=== PATIENT | female | born 1990 | race Two or more races ===

== ENCOUNTER 2022-12-03 00:46 | Emergency (ER) | payer MEDICAID ==
[~2022-12-03] VITALS: Ht 160 cm; Wt 70.0 kg
[2022-12-03] MEDS ORDERED: MAALOX PLUS or MAALOX 30 ML PO ONE (01:00)
[2022-12-03] MEDS ORDERED: LIDOCAINE VISCOUS 2% 15ML UD PO ONE (01:00)
[2022-12-03] MEDS ORDERED: DONNATAL 5ml ORAL Elix (BELLADONNA ALK-PHENOBARB) PO ONE (01:00)
[2022-12-03 02:09] LABS: Basophils # (auto) 0 10 ^3/uL (0-0.2); Basophils % (auto) 0.7 % (0.0-2.0); Eosinophils # (auto) 0.2 10 ^3/uL (0-0.8); Eosinophils % (auto) 2.3 % (0.0-7.0); Hematocrit 40.5 % (36.0-46.0); Lymphocytes # (auto) 2.5 10 ^3/uL (0.4-5.4); Lymphocytes % (auto) 35.9 % (10.0-50.0); Mean Corpuscular Hemoglobin 30.9 pg (28.0-32.0); Mean Corpuscular Hgb Conc. 34.5 g/dL (32.0-36.0); Mean Corpuscular Volume 89.4 fL (80.0-100.0); Monocytes # (auto) 0.6 10 ^3/uL (0-1.3); Monocytes % (auto) 8.1 % (0.0-12.0); Neutrophils # (auto) 3.7 10 ^3/uL (1.6-8.6); Red Blood Cells 4.53 10^6/uL (4.0-5.20); Red Cell Distribution Width 12.7 % (11.8-14.3); White Blood Cell 6.9 10^3/uL (4.4-10.8)
[2022-12-03 02:25] LABS: Alanine Aminotransferase 121 U/L (7-40); Albumin 4.5 g/dL (3.2-4.8); Alkaline Phosphatase 65 U/L (46-116); Anion Gap 6.3 (5-15); Aspartate Aminotransferase 61 U/L (13-40); Blood Urea Nitrogen 14 mg/dL (9-23); Calcium 9.3 mg/dL (8.7-10.4); Carbon Dioxide 21.7 mmol/L (20-30); Chloride 108 mmol/L (98-107); Glucose 166 mg/dL (74-106); Lipase 45 U/L (12-53); Potassium 4.2 mmol/L (3.5-5.1); Sodium 136 mmol/L (136-145)
[2022-12-03 02:26] LABS: Bilirubin, Total 0.5 mg/dL (0.2-1.0); Total Protein 7.1 g/dL (5.7-8.2)
[2022-12-03 06:03] LABS: Urine Bacteria NONE SEEN /hpf (None Seen); Urine Blood Negative /uL (Negative); Urine Clarity Clear (Clear); Urine Color Colorless (Yellow); Urine Protein, UAD Negative (Negative); Urine Urobilinogen Normal (Negative); Urine WBC 1 /hpf (0 - 5); Urine pH 6.5 (5.0-8.0)
[2022-12-03 06:35] VITALS: BP 118/72; PULSE 77; RESP 16; TEMP 98.2; O2SAT 99
== END 2022-12-03 06:50 | disposition home or self-care (01) ==
LOC: ER 00:46
DX: K76.0 Fatty (change of) liver, not elsewhere classified (principal); R10.2 Pelvic and perineal pain; R74.01 Elevation of levels of liver transaminase levels; R10.11 Right upper quadrant pain; R10.12 Left upper quadrant pain; Z98.890 Other specified postprocedural states
CPT/HCPCS: 36415; 76705; 80053; 81001; 83690; 84702; 85025

== ENCOUNTER 2024-12-06 14:35 | Emergency (ER) | payer MEDICAID, OTHER ==
[~2024-12-06] VITALS: Ht 157.5 cm; Wt 64.4 kg
[2024-12-06] MEDS ORDERED: IBUP-1454 PO (15:39)
[2024-12-06] MEDS ORDERED: METH-1181 PO (15:39)
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
[2024-12-06 15:55] VITALS: BP 124/84; PULSE 100; RESP 16; TEMP 98; O2SAT 100
== END 2024-12-06 16:00 | disposition home or self-care (01) ==
LOC: ER 14:35
DX: M79.18 Myalgia, other site (principal); M54.2 Cervicalgia; M79.602 Pain in left arm; Z98.51 Tubal ligation status; V49.9XXA Car occupant (driver) (passenger) injured in unspecified traffic accident, initial encounter; Y93.I9 Activity, other involving external motion; Y92.488 Other paved roadways as the place of occurrence of the external cause; Y99.8 Other external cause status